=== PATIENT | male | born 1965 | race Asian ===

== ENCOUNTER 2018-10-17 06:24 | Day surgery (SDC) | payer OTHER ==
[~2018-10-17] VITALS: Ht 165.1 cm; Wt 73.5 kg
[2018-10-17] MEDS ORDERED: fentaNYL 0.05 MG/ML VIAL ONE (08:34)
[2018-10-17] MEDS ORDERED: LIDOCAINE 2% 100 MG/5 ML UJET TP ONE (08:34)
[2018-10-17] MEDS ORDERED: MIDAZOLAM 2 MG/2 ML VIAL ONE (08:34)
[2018-10-17] MEDS ORDERED: fentaNYL 0.05 MG/ML VIAL IVP ONE (08:45)
== END 2018-10-17 09:25 | disposition home or self-care (01) ==
LOC: MDS 06:24 → MTU 06:47 → MDS 09:25
PROVIDERS: ATTEND Internal Medicine Gastroenterology
DX: R10.84 Generalized abdominal pain (principal); Z72.89 Other problems related to lifestyle; E66.3 Overweight; Z68.27 Body mass index [BMI] 27.0-27.9, adult
CPT/HCPCS: 45378; J3010; J2250